=== PATIENT | female | born 1960 | race Caucasian/White ===

== ENCOUNTER 2024-06-29 12:49 | Emergency (ER) | payer OTHER, BC ==
[2024-06-29 13:49] VITALS: BMI 21.1
[2024-06-29 14:10] LABS: HEMATOCRIT 40.3 % (32.4-45.2); HEMOGLOBIN 13.3 G/dL (10.7-15.3); MCH 31.8 pg (25.7-33.7); MCHC 32.9 g/dl (32.0-36.0); MEAN CELL VOLUME 96.7 fl (80-96); MEAN PLT VOLUME 10.1 fl (7.5-11.1); PLATELET COUNT 151.4 10^3/uL (134-434); RBC 4.17 10^6/uL (3.60-5.2); RDW 14.1 % (11.6-15.6); WHITE BLOOD COUNT 9.2 10^3/uL (4.0-10.8)
[2024-06-29 14:20] LABS: ALBUMIN 4.7 g/dl (3.4-5.0); ALK PHOS 69 U/L (45-117); ANION GAP 11 mmol/L (4-13); CALCIUM 9.7 mg/dl (8.5-10.1); CHLORIDE 102 mmol/L (98-107); CO2 26 mmol/L (21-32); CREATININE 1.1 mg/dl (0.6-1.3); GLUCOSE,RANDOM 103 mg/dl (74-106); POTASSIUM 3.7 mmol/L (3.5-5.1); SGOT/AST 19 U/L (15-37); SGPT/ALT 13 U/L (7-52); SODIUM 139 mmol/L (136-145); TOT PROT 6.4 g/dl (6.4-8.2)
[2024-06-29 15:44] LABS: ANISOCYTOSIS 1+; PLATELET ESTIMATE ADEQUATE
[2024-06-29] MEDS: ACETAMINOPHEN 325 MG TABLET (FP) PO ONE (16:05)
[2024-06-29] MEDS ORDERED: ACETAMINOPHEN 325 MG TABLET (FP) ONE (16:05)
[2024-06-29 16:06] VITALS: BP 103/67; PULSE 68; RESP 16
[2024-06-29 16:39] VITALS: TEMP 98.7
== END 2024-06-29 17:05 | disposition home or self-care (01) ==
LOC: FER 12:49
DX: S09.90XA Unspecified injury of head, initial encounter (principal); R55 Syncope and collapse; R11.2 Nausea with vomiting, unspecified; R19.7 Diarrhea, unspecified; R42 Dizziness and giddiness; W01.198A Fall on same level from slipping, tripping and stumbling with subsequent striking against other object, initial encounter; Z20.822 Contact with and (suspected) exposure to COVID-19
CPT/HCPCS: 0241U-QW; 36415; 70450-TC; 72220-TC-FY; 80053; 84484; 85027; 93005; 99285-25